=== PATIENT | male | born 1945 | race Caucasian/White ===

== ENCOUNTER → 2017-06-27 | Outpatient (CLI) | payer OTHER, MEDICAID ==
[~2017-06-27] MED LIST: ALBUTEROL2.5 MG/31 INH; AMLODIPINE BESY10 MG PO; APIDRA100 U/ML SUBQ; ASPIRIN81 M2 PO; BENADRYL25 MG PO; COREG25 MG PO; GABAPENTIN600 M1 PO; HYDROCODON-ACE1 EAC7 PO; KEFLEX500 M1 PO; LANTUS100 UNIT/M SUBQ; LEVAQUIN 750 M750 MG PO; LIPITOR 20 MG T20 M1 PO; LISINOPRIL20 MG PO; METFORMIN HCL500 MG PO; NASONEX17 GM NASAL; NEXIUM40 MG PO; NICOTINE TRANSD21 M1 TOP; NICOTINE TRANSD21 M1 TRANSDERM; NITROGLYCERIN0.4 MG SUBLING; PERCOCET 5-3251 EACH PO; PREDNISONE 10 M10 MG PO; PRILOSEC20 MG PO; SYMBICORT160 MCG/4. INH; VENELEX OINTMEN60 GM TOP; VENTOLIN HFA 1818 GM INH
== END ==
LOC: M.WC 01:44
DX: L89.313 Pressure ulcer of right buttock, stage 3 (principal); L89.320 Pressure ulcer of left buttock, unstageable; E11.622 Type 2 diabetes mellitus with other skin ulcer; L98.411 Non-pressure chronic ulcer of buttock limited to breakdown of skin; J44.9 Chronic obstructive pulmonary disease, unspecified; I25.10 Atherosclerotic heart disease of native coronary artery without angina pectoris; K21.9 Gastro-esophageal reflux disease without esophagitis; I11.0 Hypertensive heart disease with heart failure; I50.9 Heart failure, unspecified; F17.210 Nicotine dependence, cigarettes, uncomplicated; F12.90 Cannabis use, unspecified, uncomplicated; Z72.89 Other problems related to lifestyle

== ENCOUNTER 2018-03-13 18:52 | Inpatient (IN) | payer OTHER ==
[~2018-03-13] VITALS: Ht 172.7 cm; Wt 81.6 kg
[~2018-03-13 18:52] MED LIST changes: -ALBUTEROL2.5 MG/31 INH; -KEFLEX500 M1 PO; -NICOTINE TRANSD21 M1 TRANSDERM
[2018-03-13 18:55] VITALS: BP 122/55
[2018-03-13 19:18] LABS: HEMATOCRIT 30.6 % (42.0-52.0); HEMOGLOBIN 9.7 gm/dL (14.0-18.0); MCHC 31.8 g/dL (28.0-37.0); MCV 81.6 fL (80.0-100.0); MPV 7.6 fl. (7.2-11.1); NUCLEATED RBCS 0 /100WBC; PLATELET COUNT* 250 thou/uL (150-400); RBC 3.75 mil/uL (4.50-6.00); RDW-CV 20.2 % (10.5-14.5); WBC 17.9 thou/uL (4.0-11.0)
[2018-03-13 19:26] LABS: ANION GAP 11 mmol/L (7-16); BUN 46 mg/dL (7-18); CALCIUM 7.7 mg/dL (8.5-10.1); CHLORIDE 93 mmol/L (98-107); CO2 25 mmol/L (21-32); CREATININE 2.8 mg/dL (0.6-1.3); GLUCOSE 172 mg/dL (70-99); POTASSIUM 4.1 mmol/L (3.5-5.1); SODIUM 129 mmol/L (136-145)
[2018-03-13 19:27] LABS: APTT 31.6 Seconds (25.0-31.3); INR 1.1; PROTIME 11.4 Seconds (9.20-11.50)
[2018-03-13 19:37] LABS: ALBUMIN 2.1 g/dL (3.4-5.0); ALKALINE PHOSPHATASE 102 U/L (46-116); NT-PRO BRAIN NAT PEPTIDE 6727 pg/mL (<300); SGOT 18 U/L (15-37); SGPT 9 U/L (30-65); TOTAL BILIRUBIN 0.6 mg/dL (<0.1-1.0); TOTAL PROTEIN 7.7 g/dL (6.4-8.2); TROPONIN-I LEVEL <0.06 ng/mL (<0.06)
[2018-03-13 19:39] LABS: ABSOLUTE EOSINOPHILS 0.2 thou/uL (0.0-0.7); ABSOLUTE LYMPHOCYTES 0.7 thou/uL (0.8-5.3); ABSOLUTE MONOCYTES 0.7 thou/uL (0.0-1.2); ABSOLUTE NEUTROPHILS 16.3 thou/uL (1.6-8.1); ANISOCYTOSIS 1+; PLATELET ESTIMATE ADEQUATE
[2018-03-13 20:00] VITALS: BP 101/56
[2018-03-13 21:01] VITALS: BP 122/55
[2018-03-14] VITALS (7 sets, daily range): BP systolic 101–163; BP diastolic 42–62
[2018-03-14 16:51] LABS: URINE BILIRUBIN NEGATIVE (Negative); URINE BLOOD TRACE (Negative); URINE CLARITY CLEAR; URINE COLOR YELLOW; URINE GLUCOSE-RANDOM TRACE (Negative); URINE KETONES NEGATIVE (Negative); URINE LEUKOCYTES-REFLEX NEGATIVE (Negative); URINE NITRITE-REFLEX NEGATIVE (Negative); URINE PROTEIN 2+ (Negative); URINE SPECIFIC GRAVITY 1.025 (1.005-1.030); URINE UROBILINOGEN 0.2 E.U./dl (0.2-1.0)
[2018-03-14 16:59] LABS: BACTERIA-REFLEX >30 Many /HPF (None Seen); CRYSTALS None Seen /LPF (None Seen); FINE GRANULAR CASTS 0-3 Few /LPF (None Seen); HYALINE CASTS 0-3 Few /LPF (None Seen); SQUAMOUS 0-3 Few /LPF (0-3); URINE RBC 3-10 Few /HPF (0-2); URINE WBC-REFLEX 0-5 Rare /HPF (0-5)
[2018-03-15] VITALS: BP 117/53
[2018-03-15 04:00] VITALS: BP 133/56
[2018-03-15 05:18] LABS: HEMOGLOBIN 9.2 gm/dL (14.0-18.0); MCH 26.3 pg (26.0-34.0); MCHC 31.7 g/dL (28.0-37.0); MCV 82.8 fL (80.0-100.0); MPV 8.2 fl. (7.2-11.1); NUCLEATED RBCS 0 /100WBC; PLATELET COUNT* 251 thou/uL (150-400); RBC 3.51 mil/uL (4.50-6.00); RDW-CV 20.4 % (10.5-14.5); WBC 7.3 thou/uL (4.0-11.0)
[2018-03-15 05:41] LABS: CALCIUM 7.6 mg/dL (8.5-10.1); CREATININE 2.2 mg/dL (0.6-1.3); POTASSIUM 5.2 mmol/L (3.5-5.1)
[2018-03-15 06:26] LABS: ABSOLUTE LYMPHOCYTES 0.3 thou/uL (0.8-5.3); ABSOLUTE MONOCYTES 0.1 thou/uL (0.0-1.2); ABSOLUTE NEUTROPHILS 6.9 thou/uL (1.6-8.1); LARGE PLATELETS OCCASIONAL; PLATELET ESTIMATE ADEQUATE
[2018-03-15 06:27] LABS: HYPOCHROMASIA 1+
[2018-03-15 08:04] VITALS: BP 143/66
[2018-03-15 08:18] LABS: BE -2.7 mmol/L (-2 to +3); HCO3 21.5 mmol/L (22.0-26.0); PCO2 34.6 mmHg (35.0-45.0); PO2 87.8 mmHg (75.0-100.0); pH 7.411 (7.340-7.450)
--- NOTE | 2018-03-15 12:00 | CON ---
[address] [address] CONSULTATION Name: HOLMANNEL Room: [address] IN .R.#: [id number] Admission: 03/13/18 Attend Phys: Arslan Trent Discharge: Date of : 47 Report #: [id number] THIS REPORT FOR: //name// CC: FAM physician/PCP Abdi Montero DATE OF SERVICE: 03/14/2018 REFERRING PHYSICIAN: Abdi Montero DO CHIEF COMPLAINT: Dyspnea. HISTORY OF PRESENT ILLNESS: The patient is a 72-year-old male who has not been feeling well for about a week. He had been coughing, having shortness of breath. He has been bringing up purulent secretions. The patient denies to me that he had any problems with fever, chills, chest pain, nausea, vomiting, diarrhea or hematuria. The patient has a chronic dyspnea condition, but it had been worse over the past week. PAST MEDICAL HISTORY: Significant for chronic obstructive airways disease, tobacco abuse. He has had a partial kidney resection in the past for a cyst. He has a history of coronary artery disease. He has "bad heart valve." In addition, he has hypertension, diabetes. SOCIAL HISTORY: He lives with his son in the basement. He smokes 2-3 packs of cigarettes per day. ALLERGIES: PENICILLIN. REVIEW OF SYSTEMS: System review negative other than what is outlined above. FAMILY HISTORY: Noncontributory for his age. PHYSICAL EXAMINATION: VITAL SIGNS: Blood pressure 105/62, respiratory rate 22, pulse rate 115, temperature 98 degrees, weight 180 pounds. GENERAL APPEARANCE: The patient is awake, alert, oriented. He has a congested cough. His admission temperature was 103 degrees. He is not experiencing any pain or discomfort at this time. HEENT: Head atraumatic. Eyes: Pupils are round, equal, reactive. Oral cavity moist. NECK: No adenopathy. CHEST: Reveals scattered wheezes, rhonchi and some basilar crackles. CARDIOVASCULAR: [place] [id number] CONSULTATION Name: HOLMANNEL Room: [address] IN [facility]#: [id number] Admission: 03/13/18 Attend Phys: Arslan Trent Discharge: Date of : 47 Report #: [id number] ABDOMEN: Obese, soft. No organomegaly or tenderness. EXTREMITIES: Negative for edema. SKIN: Multiple tattoos. No rash. LYMPHATICS: Negative. Pulses equal bilaterally. NEUROLOGIC: Strength equal bilaterally. Moves all 4 extremities on command. No lateralizing signs. LABORATORY DATA: Admission sodium 129, potassium 4.1, chloride 93, CO2 of 25, BUN 46, creatinine 2.8, EGFR 22, total bilirubin is normal. ProBNP is 6727. Troponin less than 0.07. In 05/2017, his creatinine was 1.8. Hemoglobin and hematocrit of 9.7 and 30.1 with a white count of 17,900. Chest x-ray reveals a dense right upper lobe infiltrate with air bronchograms, patchy infiltrate in the left mid lung field. Costophrenic angles are clear. No evidence of cardiomegaly. ASSESSMENT: 1. Acute respiratory insufficiency. 2. Acute on chronic respiratory failure. 3. Pneumonia, community acquired. 4. Elevated pro-brain natriuretic peptide. 5. Tobacco abuse. RECOMMENDATION: A 2D echocardiogram would be warranted. Repeat arterial blood gas for this hospitalization would be warranted as well. Continue with antibiotic coverage, initiate mucolytic agents, also initiate aspiration precautions. A followup chest x-ray in the a.m. <ELECTRONICALLY SIGNED> By: Hudson Castañeda MD 03/15/18 1200 1403 [id number] Castañeda MD /nt
[2018-03-15 13:20] VITALS: BP 135/54
--- NOTE | 2018-03-15 16:56 | EKG ---
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: 9 : 1945 Requested By: Osmar Zuniga Order Number: [id number] MD: Woody Patton Measurements Intervals [place] Rate: 104 P: 61 ID: [id number] QRS: 28 QRSD: 101 T: 85 QT: 345 QTc: 454 Interpretive Statements Sinus tachycardia Nonspecific repol abnormality, lateral leads Compared to ECG 06/10/2017 20:07:46 no significant changes noted Electronically Signed On 03-15-2018 16:56:31 CDT by Woody Patton [email or web address] <ELECTRONICALLY SIGNED> By: Woody Patton MD, [facility] 03/15/18 165 55 55 Woody Patton MD, FACC /EPI
[2018-03-15 17:17] VITALS: BP 134/66
[2018-03-15 20:00] VITALS: BP 137/52
[2018-03-16] VITALS: BP 138/62
[2018-03-16 04:00] VITALS: BP 125/45
[2018-03-16 05:44] LABS: CALCIUM 8.1 mg/dL (8.5-10.1); CREATININE 2.1 mg/dL (0.6-1.3); POTASSIUM 4.6 mmol/L (3.5-5.1)
[2018-03-16 08:20] VITALS: BP 148/98
[2018-03-16] MEDS ORDERED: PREDNISONE 10 M10 MG PO (13:35)
[2018-03-16] MEDS ORDERED: NICOTINE TRANSD21 M1 TRANSDERM (13:35)
[2018-03-16] MEDS ORDERED: ALBUTEROL2.5 MG/31 INH (13:36)
[2018-03-16] MEDS ORDERED: KEFLEX500 M1 PO (13:36)
[2018-03-16 13:45] VITALS: BP 148/98
== END 2018-03-16 14:15 | disposition home or self-care (01) | DRG 177 ==
LOC: M.ERS 18:52 → M.2W 19:47 → M.TBA-ER 19:47 → M.2W 20:38
PROVIDERS: Emergency Medicine Emergency Medical Services; Internal Medicine Pulmonary Disease; ADMIT Internal Medicine
DX: J69.0 Pneumonitis due to inhalation of food and vomit (principal); J96.20 Acute and chronic respiratory failure, unspecified whether with hypoxia or hypercapnia; N17.0 Acute kidney failure with tubular necrosis; J44.1 Chronic obstructive pulmonary disease with (acute) exacerbation; E11.9 Type 2 diabetes mellitus without complications; I50.9 Heart failure, unspecified; K57.90 Diverticulosis of intestine, part unspecified, without perforation or abscess without bleeding; K59.00 Constipation, unspecified; F17.210 Nicotine dependence, cigarettes, uncomplicated; I11.0 Hypertensive heart disease with heart failure; I25.10 Atherosclerotic heart disease of native coronary artery without angina pectoris; Z79.82 Long term (current) use of aspirin; Z79.899 Other long term (current) drug therapy; Z83.6 Family history of other diseases of the respiratory system; Z90.5 Acquired absence of kidney; Z88.0 Allergy status to penicillin; Z82.49 Family history of ischemic heart disease and other diseases of the circulatory system